=== PATIENT | male | born 1975 | race Caucasian/White ===

== ENCOUNTER 2018-02-11 19:56 | Emergency (ER) | payer BC ==
[~2018-02-11] VITALS: Ht 177.8 cm; Wt 109.1 kg
[2018-02-11 20:00] VITALS: BP 152/97; PULSE 83; TEMP 98.8
[2018-02-11] MEDS ORDERED: PRINIVIL10 MG PO (20:15)
== END 2018-02-11 21:24 | disposition home or self-care (01) ==
LOC: COL.ER 19:56
DX: M75.102 Unspecified rotator cuff tear or rupture of left shoulder, not specified as traumatic (principal)
CPT/HCPCS: J1885

== ENCOUNTER 2022-08-23 09:18 | Day surgery (SDC) | payer OTHER ==
[~2022-08-23] VITALS: Ht 177.8 cm; Wt 111.8 kg
[~2022-08-23 09:18] MED LIST: PRINIVIL10 MG PO
[2022-08-23] MEDS ORDERED: PRINZIDE 12.5 M1 TA1 PO (10:02)
[2022-08-23 10:10] VITALS: BP 136/88; PULSE 89; TEMP 97.3
[2022-08-23 12:20] VITALS: BP 85/62; PULSE 68; TEMP 97
[2022-08-23 12:35] VITALS: BP 101/57; PULSE 60
[2022-08-23 12:50] VITALS: BP 109/63; PULSE 60
--- NOTE | 2022-08-23 13:05 | NUR ---
1220 RETURNS TO ROOM 4 PER CART. AWAKE, ALERT. RESP UNLABORED. AMBULATES TO RECLINER WITH STANDBY ASSIST. DENIES NAUSEA OR ABD PAIN. VITAL SIGNS OBTAINED. IN ROOM. CALL LIGHT AT SIDE. 1235 TOLERATES PO JUICE AND PUDDING WITHOUT NAUSEA 1247 DISCHARGE INSTRUCTIONS REVIEWED. PATIENT VERBALIZES UNDERSTANDING. COPY PROVIDED IN DISCHARGE FOLDER. 1300 DRESSES SELF
== END 2022-08-23 13:05 | disposition home or self-care (01) ==
LOC: SDCO 09:18
DX: Z12.11 Encounter for screening for malignant neoplasm of colon (principal); D12.5 Benign neoplasm of sigmoid colon; K57.30 Diverticulosis of large intestine without perforation or abscess without bleeding
CPT/HCPCS: J2704; J7120